=== PATIENT | male | born 1955 | race Caucasian/White ===

== ENCOUNTER 2023-02-28 15:25 | Emergency (ER) | payer OTHER ==
[2023-02-28 15:32] VITALS: BMI 31.5
[2023-02-28 17:42] VITALS: BP 141/82; PULSE 75; RESP 16; TEMP 98.2
== END 2023-02-28 17:43 | disposition home or self-care (01) ==
LOC: JER 15:25
DX: T47.4X1A Poisoning by other laxatives, accidental (unintentional), initial encounter (principal)
CPT/HCPCS: 99283-25